=== PATIENT | female | born 1970 | race Caucasian/White ===

== ENCOUNTER 2017-06-25 19:41 | Observation (INO) | payer OTHER ==
[2017-06-25 19:45] VITALS: BMI 33.8
[2017-06-25 20:05] LABS: URINE APPEARANCE Clear; URINE BILIRUBIN Negative (NEGATIVE); URINE BLOOD Negative (NEGATIVE); URINE GLUCOSE (UA) Negative (NEGATIVE); URINE KETONE Negative (NEGATIVE); URINE LEUK ESTERASE Negative (NEGATIVE); URINE NITRITE Negative (NEGATIVE); URINE PROTEIN Negative (NEGATIVE); URINE UROBILINOGEN 0.2 (0.2-1.0)
[2017-06-25 20:08] LABS: URINE COLOR YELLOW
[2017-06-25 20:10] LABS: HCG,QUALITATIVE URINE NEGATIVE
[2017-06-25 20:26] LABS: EOS % 2.5 % (0-4.5); HEMATOCRIT 35.8 % (32.4-45.2); HEMOGLOBIN 11.9 GM/dl (10.7-15.3); LYMPH % 23.9 % (8-40); MCH 28.4 pg (25.7-33.7); MCHC 33.2 g/dl (32.0-36.0); MEAN CELL VOLUME 85.4 fl (80-96); MEAN PLT VOLUME 9.4 fl (7.5-11.1); MONO % 7.2 % (3.8-10.2); NEUT % 65.4 % (42.8-82.8); PLATELET COUNT 212 K/MM3 (134-434); RBC 4.19 M/mm3 (3.60-5.2); WHITE BLOOD COUNT 7.5 K/mm3 (4.0-10.8)
--- NOTE | 2017-06-25 20:43 | PDOC ---
History of Present Illness - History of Present Illness Initial Comments: 06/25/17 21:26 Patient is a 46 F, with PMHx of has 1 kidney, who presents to the ED for 2 days of lower abdominal pain. Patient states that she has had worsening abdominal pain for the past 2 days, localized in the lower abdomen, pain worse on left than right, pain worse when she urinates. She states that eating does not exacerbate the pain. Two months ago she had gallbladder swelling. She denies recent fevers, chills, headache or dizziness. She denies recent nausea, vomit, diarrhea or constipation. She denies recent dysuria, frequency, urgency or hematuria. She denies recent chest pain or shortness of breath. Surgical Hx: Donated right kidney to over 20 years ago. Social Hx: denies EtOH, tobacco, or drug use. <Viridiana Ervin - Last Filed: 06/25/17 21:26> <Ele Loja - Last Filed: 06/26/17 02:28> - General Chief Complaint: Pain, Acute Stated Complaint: ABD PAIN Past History <Viridiana Ervin - Last Filed: 06/25/17 21:26> - Past Medical History COPD: No - Suicide/Smoking/Psychosocial Hx Smoking History: Never smoked <Ele Loja - Last Filed: 06/26/17 02:28> - Past Medical History Allergies/Adverse Reactions: Allergies Allergy/AdvReac Type Severity Reaction Status Date / Time No Known Allergies Allergy Unverified 06/25/17 19:42 Home Medications: Ambulatory Orders Nitrofurantoin Monohyd/M-Cryst [Macrobid -] 100 mg PO BID #14 capsule 06/26/17 Phenazopyridine HCl [Pyridium] 200 mg PO TID #6 tablet 06/26/17 Review of Systems - Review of Systems Comments:: 06/25/17 21:27 GENERAL/CONSTITUTIONAL: No fever or chills. No weakness. HEAD, EYES, EARS, NOSE AND THROAT: No change in vision. No ear pain or discharge. No sore throat. CARDIOVASCULAR: No chest pain or shortness of breath. RESPIRATORY: No cough, wheezing, or hemoptysis. GASTROINTESTINAL: +lower abdominal pain. No nausea, vomiting, diarrhea or constipation. GENITOURINARY: No dysuria, frequency, or change in urination. MUSCULOSKELETAL: No joint or muscle swelling or pain. No neck or back pain. SKIN: No rash NEUROLOGIC: No headache, vertigo, loss of consciousness, or change in strength/ sensation. ENDOCRINE: No increased thirst. No abnormal weight change. HEMATOLOGIC/LYMPHATIC: No anemia, easy bleeding, or history of blood clots. ALLERGIC/IMMUNOLOGIC: No hives or skin allergy. <Viridiana Ervin - Last Filed: 06/25/17 21:26> *Physical Exam - Vital Signs Last Vital Signs Temp Pulse Resp BP Pulse Ox 98.1 F 76 18 142/109 100 06/25/17 19:42 06/25/17 19:42 06/25/17 19:42 06/25/17 19:42 06/25/17 19:42 - Physical Exam Comments: 06/25/17 21:27 GENERAL: Awake, alert, and fully oriented, in no acute distress HEAD: No signs of trauma EYES: PERRLA, EOMI, sclera anicteric, conjunctiva clear ENT: Auricles normal inspection, hearing grossly normal, nares patent, oropharynx clear without exudates. Moist mucosa NECK: Normal ROM, supple, no lymphadenopathy, JVD, or masses LUNGS: Breath sounds equal, clear to auscultation bilaterally. No wheezes, and no crackles HEART: Regular rate and rhythm, normal S1 and S2, no murmurs, rubs or gallops ABDOMEN: Soft, normoactive bowel sounds. Severe pain and guarding diffusely. More on lower left. No flank pain. EXTREMITIES: Normal range of motion, no edema. No clubbing or cyanosis. No cords, erythema, or tenderness NEUROLOGICAL: Cranial nerves II through XII grossly intact. Normal speech, normal gait SKIN: Warm, Dry, normal turgor, no rashes or lesions noted. <Viridiana Ervin - Last Filed: 06/25/17 21:26> - Vital Signs Last Vital Signs Temp Pulse Resp BP Pulse Ox 98.1 F 76 18 142/109 100 06/25/17 19:42 06/25/17 19:42 06/25/17 19:42 06/25/17 19:42 06/25/17 19:42 <Ele Loja - Last Filed: 06/26/17 02:28> ED Treatment Course - LABORATORY CBC & Chemistry Diagram: 06/25/17 19:50 06/25/17 19:50 - ADDITIONAL ORDERS Additional order review: Laboratory Results 06/25/17 06/25/17 19:50 19:50 Sodium 136 Potassium 3.8 Chloride 104 Carbon Dioxide 27 Anion Gap 5 L BUN 7 Creatinine 0.8 Creat Clearance w eGFR > 60 Random Glucose 93 Calcium 8.6 Total Bilirubin 0.6 AST 20 ALT 13 Alkaline Phosphatase 67 Total Protein 6.8 Albumin 3.8 Urine Color Yellow Urine Appearance Clear Urine pH 6.0 Ur Specific Nabb <= 1.005 Urine Protein Negative Urine Glucose (UA) Negative Urine Ketones Negative Urine Blood Negative Urine Nitrite Negative Urine Bilirubin Negative Urine Urobilinogen 0.2 Ur Leukocyte Esterase Negative Urine HCG, Qual Negative 06/25/17 19:50 RBC 4.19 MCV 85.4 MCHC 33.2 RDW 12.0 MPV 9.4 Neutrophils % 65.4 Lymphocytes % 23.9 Monocytes % 7.2 Eosinophils % 2.5 Basophils % 1.0 - Medications Given in the ED: ED Medications Discontinued Medications Generic Name Dose Route Start Last Admin Trade Name Zarina PRN Reason Stop Dose Admin Morphine Sulfate 2 mg 06/25/17 20:55 06/25/17 21:00 Morphine Injection - IVPUSH 06/25/17 20:56 2 mg ONCE ONE Administration Sodium Chloride 1,000 ml 06/25/17 20:55 06/25/17 21:00 Normal Saline - IV 06/25/17 20:56 1,000 ml ONCE ONE Administration <Viridiana Ervin - Last Filed: 06/25/17 21:26> - LABORATORY CBC & Chemistry Diagram: 06/25/17 19:50 06/25/17 19:50 - ADDITIONAL ORDERS Additional order review: Laboratory Results 06/25/17 19:50 Urine Color Yellow Urine Appearance Clear Urine pH 6.0 Ur Specific Nabb <= 1.005 Urine Protein Negative Urine Glucose (UA) Negative Urine Ketones Negative Urine Blood Negative Urine Nitrite Negative Urine Bilirubin Negative Urine Urobilinogen 0.2 Ur Leukocyte Esterase Negative Urine HCG, Qual Negative 06/25/17 19:50 RBC 4.19 MCV 85.4 MCHC 33.2 RDW 12.0 MPV 9.4 Neutrophils % 65.4 Lymphocytes % 23.9 Monocytes % 7.2 Eosinophils % 2.5 Basophils % 1.0 <Ele Loja - Last Filed: 06/26/17 02:28> Medical Decision Making - Medical Decision Making 06/25/17 23:35 Pt comes with abdominal pain that is lower abdominal and diffuse. Pt has has dysuiria, but her UA is normal. Pt has one kidney, as she donated the other to her 20 yrs ago, she has no flank pain and no fever or chills. She does have diffuse lower abd pain and guarding. Pt has normal pelvic sono. No sign of torsion -- though it is only 70% sensitive , and she has a right paraovarian cyst 1.2x0.6cm. I will let pt know she should follow this with a 6 week repeat sono. Pt drank for a CT abd/pelvis; I will not administer IV contrast, as she has only one kidney. Labs are normal. 06/26/17 01:22 Pt with continued abd pain. Her CT scan appears normal; labs normal; UA normal. Pt states that this is the same feeling she had when a urologist at [place] presdctibed her with abx for cystitis. SHe took the meds x 4 weeks and states that for a month after that she had not pain. Now the pain has returned. Pt was being discharged with abx and pyridium. SHe vomited and states that the pain continues. 06/26/17 01:24 I paged our HAND COOPER HELPER director of institutional research ([phone] --Dr. Valdovinos as well as on his cell [phone] and left message. No response. I will likely admit patient to hospitalist for med surg evaluation in the AM, as well as urology eval and DIRECTOR PRODUCT MANAGEMENT eval. 06/26/17 01:30 She may have ovarian torsion/detorsion; She may have urinary retention; unclear what is causeing pain and vomiting. Pt has no PMD, though she mentions that she saw a urologist in [facility] once 2 months ago for a cystitis. Pt will be admitted to the hospitalist team. 06/26/17 02:03 I added on a PT/INR; type and screen; sed rate and crp as well as Lactic acid to aid in eval of patient. Accpeted by the hospitalist TEENA. 06/26/17 02:23 Patient Name: CLOVIS [place] THIS IS A PRELIMINARY REPORT FROM [facility] [employer]PECT[facility] DATE OF SERVICE: 2017-06-25 22:39:01 IMAGES: [id number] EXAM: CT abdomen and pelvis without contrast HISTORY: Colitis pain left lower quadrant hernia COMPARISON: None. FINDINGS: There is no bowel obstruction, free air, or free fluid. Negative for diverticulitis or colitis. Normal appendix. Absent right kidney. No left urinary tract stone or obstruction. Normal liver (limitation the dome of the liver was not included on the scan and cannot be evaluated). Normal spleen. Normal pancreas. No obvious gallbladder abnormalities. Normal adrenal glands. Osseous structures are intact. 06/26/17 02:26 I spoke to the DIRECTOR PRODUCT MANAGEMENT director of institutional research fellow Dr. Valdovinos, who tells me that without ovarian cyst of >4cm it is highly unlikely to have an ovarian torsion. <Ele Loja - Last Filed: 06/26/17 02:28> *DC/Admit/Observation/Transfer - Attestations Scribe Attestion: 06/25/17 21:28 Documentation prepared by Viridiana Ervin, acting as caregivers non medical for Ele Loja MD. <Viridiana Ervin - Last Filed: 06/25/17 21:26> - Discharge Dispostion Admit: Yes <Ele Loja - Last Filed: 06/26/17 02:28> Diagnosis at time of Disposition: Abdominal pain, unspecified site - Discharge Dispostion Condition at time of disposition: Guarded
[2017-06-25 20:45] LABS: ALBUMIN 3.8 g/dl (3.5-5.0); ALK PHOS 67 U/L (32-92); ANION GAP 5 (8-16); BILIRUBIN,TOTAL 0.6 mg/dl (0.2-1.0); BLOOD UREA NITROGEN 7 mg/dl (7-18); CALCIUM 8.6 mg/dl (8.4-10.2); CHLORIDE 104 mmol/L (98-107); CO2 27 mmol/L (22-28); CREATININE 0.8 mg/dl (0.6-1.3); GLUCOSE,RANDOM 93 mg/dl (74-106); POTASSIUM 3.8 mmol/L (3.5-5.1); SGOT/AST 20 U/L (10-42); SGPT/ALT 13 U/L (10-40); SODIUM 136 mmol/L (136-145); TOT PROT 6.8 g/dl (6.4-8.3)
[2017-06-25] MEDS ORDERED: SODIUM CHLORIDE 0.9% 500 ML INFUS.BAG IV ONE (20:55)
[2017-06-25] MEDS ORDERED: morphine CARPU-JECT 2 MG/1 ML DISP.SYRIN IVPUSH ONE (20:55)
[2017-06-25] MEDS ORDERED: morphine SULFATE 4 MG/ML VIAL ONE (20:57)
[2017-06-26] MEDS ORDERED: PHENAZOPYRIDINE HCL 100 MG TABLET (FP) PO ONE (00:48)
[2017-06-26] MEDS ORDERED: PHENAZOPYRIDINE HCL 100 MG TABLET (FP) ONE (00:51)
[2017-06-26] MEDS ORDERED: NITROFURANTOIN MACROCRYSTAL 50 MG CAPSULE (FP) ONE (00:51)
[2017-06-26] MEDS ORDERED: NITROFURANTOIN MACROCRYSTAL 50 MG CAPSULE (FP) PO SCH (01:00)
[2017-06-26] MEDS ORDERED: ONDANSETRON 4 MG/2 ML VIAL IVPUSH PRN (01:44)
[2017-06-26] MEDS ORDERED: morphine SULFATE 4 MG/ML VIAL IVPUSH PRN (01:44)
[2017-06-26] MEDS ORDERED: ACETAMINOPHEN 1000 MG/100 ML VIAL (NON FORMULARY) IVPB ONE (01:45)
[2017-06-26] MEDS ORDERED: SODIUM CHLORIDE 1,000 ML IV SCH (01:45)
[2017-06-26] MEDS ORDERED: ACETAMINOPHEN INJECTION 100 ML IVPB ONE (02:00)
[2017-06-26 03:31] LABS: INR 1.07 (0.82-1.09)
[2017-06-26 06:34] VITALS: BP 101/65; PULSE 71; TEMP 98.3
[2017-06-26 08:05] LABS: BASO % 0.9 % (0-2.0); EOS % 2.5 % (0-4.5); HEMATOCRIT 32.6 % (32.4-45.2); HEMOGLOBIN 10.9 GM/dl (10.7-15.3); LYMPH % 28.5 % (8-40); MCH 28.6 pg (25.7-33.7); MCHC 33.5 g/dl (32.0-36.0); MEAN CELL VOLUME 85.4 fl (80-96); MEAN PLT VOLUME 9.6 fl (7.5-11.1); MONO % 8.5 % (3.8-10.2); NEUT % 59.6 % (42.8-82.8); PLATELET COUNT 204 K/MM3 (134-434); RBC 3.82 M/mm3 (3.60-5.2); RDW 12.4 % (11.6-15.6); WHITE BLOOD COUNT 5.6 K/mm3 (4.0-10.8)
[2017-06-26 08:40] LABS: ANION GAP 5 (8-16); CALCIUM 8.1 mg/dl (8.4-10.2); CHLORIDE 107 mmol/L (98-107); CO2 24 mmol/L (22-28); GLUCOSE,RANDOM 88 mg/dl (74-106); PHOSPHOROUS 3.4 mg/dl (2.5-4.6); POTASSIUM 3.5 mmol/L (3.5-5.1); SODIUM 136 mmol/L (136-145)
[2017-06-26 08:59] LABS: BLOOD UREA NITROGEN < 6 mg/dl (7-18); CREATININE < 0.8 mg/dl (0.6-1.3)
--- NOTE | 2017-06-26 09:07 | PN ---
Progress Note (short form) - Note Progress Note: Has no fever The pain is still present but less Vomited once after getting pain meds O/E Heart regular rhythm Lungs clear Abd soft slight LLQ tenderness + Also has pelvic and RLQ tenderness+ BS heard Ext no edema Vital Signs Period Temp Pulse Resp BP Sys/Jacobo Pulse Ox Last 24 Hr 98.1 F-98.3 F 71-76 18-18 101-142/65-109 99-100 Laboratory Results - last 24 hr 06/25/17 06/25/17 06/25/17 19:50 19:50 19:50 WBC 7.5 RBC 4.19 Hgb 11.9 Hct 35.8 MCV 85.4 MCH 28.4 MCHC 33.2 RDW 12.0 Plt Count 212 MPV 9.4 Neutrophils % 65.4 Lymphocytes % 23.9 Monocytes % 7.2 Eosinophils % 2.5 Basophils % 1.0 ESR PT with INR INR Sodium 136 Potassium 3.8 Chloride 104 Carbon Dioxide 27 Anion Gap 5 L BUN 7 Creatinine 0.8 Creat Clearance w eGFR > 60 Random Glucose 93 Lactic Acid Calcium 8.6 Phosphorus Magnesium Total Bilirubin 0.6 AST 20 ALT 13 Alkaline Phosphatase 67 C-Reactive Protein Total Protein 6.8 Albumin 3.8 Urine Color Yellow Urine Appearance Clear Urine pH 6.0 Ur Specific [place] <= 1.005 Urine Protein Negative Urine Glucose (UA) Negative Urine Ketones Negative Urine Blood Negative Urine Nitrite Negative Urine Bilirubin Negative Urine Urobilinogen 0.2 Ur Leukocyte Esterase Negative Urine HCG, Qual Negative Blood Type Antibody Screen 06/26/17 06/26/17 06/26/17 02:07 02:20 02:30 WBC RBC Hgb Hct MCV MCH MCHC RDW Plt Count MPV Neutrophils % Lymphocytes % Monocytes % Eosinophils % Basophils % ESR Cancelled PT with INR 12.00 H INR 1.07 Sodium Potassium Chloride Carbon Dioxide Anion Gap BUN Creatinine Creat Clearance w eGFR Random Glucose Lactic Acid Calcium Phosphorus Magnesium Total Bilirubin AST ALT Alkaline Phosphatase C-Reactive Protein 2.1 H Total Protein Albumin Urine Color Urine Appearance Urine pH Ur Specific [place] Urine Protein Urine Glucose (UA) Urine Ketones Urine Blood Urine Nitrite Urine Bilirubin Urine Urobilinogen Ur Leukocyte Esterase Urine HCG, Qual Blood Type Antibody Screen 06/26/17 06/26/17 06/26/17 02:30 02:40 07:20 WBC 5.6 RBC 3.82 Hgb 10.9 Hct 32.6 MCV 85.4 MCH 28.6 MCHC 33.5 RDW 12.4 Plt Count 204 MPV 9.6 Neutrophils % 59.6 Lymphocytes % 28.5 Monocytes % 8.5 Eosinophils % 2.5 Basophils % 0.9 ESR PT with INR INR Sodium Potassium Chloride Carbon Dioxide Anion Gap BUN Creatinine Creat Clearance w eGFR Random Glucose Lactic Acid 0.7 Calcium Phosphorus Magnesium Total Bilirubin AST ALT Alkaline Phosphatase C-Reactive Protein Total Protein Albumin Urine Color Urine Appearance Urine pH Ur Specific [place] Urine Protein Urine Glucose (UA) Urine Ketones Urine Blood Urine Nitrite Urine Bilirubin Urine Urobilinogen Ur Leukocyte Esterase Urine HCG, Qual Blood Type O POSITIVE Antibody Screen Negative 06/26/17 07:20 WBC RBC Hgb Hct MCV MCH MCHC RDW Plt Count MPV Neutrophils % Lymphocytes % Monocytes % Eosinophils % Basophils % ESR PT with INR INR Sodium 136 Potassium 3.5 Chloride 107 Carbon Dioxide 24 Anion Gap 5 L BUN < 6 L Creatinine < 0.8 Creat Clearance w eGFR Random Glucose 88 Lactic Acid Calcium 8.1 L Phosphorus 3.4 Magnesium 2.0 Total Bilirubin AST ALT Alkaline Phosphatase C-Reactive Protein Total Protein Albumin Urine Color Urine Appearance Urine pH Ur Specific [place] Urine Protein Urine Glucose (UA) Urine Ketones Urine Blood Urine Nitrite Urine Bilirubin Urine Urobilinogen Ur Leukocyte Esterase Urine HCG, Qual Blood Type Antibody Screen A&P 1.Lower abd pain both RLQ and now more LLQ Etiology of which is not clear Normal blood and CT scan Colitis is a possibility and will d/c home on Cipro for 3 days which she has at home 2.Dysuria The urine is normal Pyridium for symptomatic relief
--- NOTE | 2017-06-26 11:06 | HP ---
DATE OF ADMISSION: HISTORY: She is a 46-year-old female who was admitted with lower abdominal pain, fever, and chills of 2-days' duration. The patient was in her usual state of health until apparently 2 days ago when she started having nonspecific lower abdominal pain. Two days ago the patient had 4 bowel movements, watery. No vomiting. There was no blood or mucus. This was followed by the next day when she continued to experience mild tolerable abdominal pain without any bowel movement or fever. Yesterday on the day of her admission, the patient started experiencing more significant lower abdominal pain with fever and chills and was brought into the emergency room where she was found to have left and right lower quadrant rebound tenderness. Blood work was normal. CAT scans and ultrasounds were also done, and the patient has been admitted. The patient also has burning pain when she passes urine. PAST MEDICAL HISTORY: Significant for renal kidney donation many years ago and mild obesity. MEDICATIONS: None. ALLERGIES: None. SOCIAL HISTORY: She is . She has 2 children. Nonsmoker. Denies any alcohol or drug abuse. FAMILY HISTORY: Significant for 4 siblings. Her mother had diabetes. REVIEW OF SYSTEMS: Unremarkable apart from nonspecific joint pains for which she does not take any medications. She denies any other complaints. She denies any chronic headache, dizziness, chest pain, palpitations, abdominal pain, loss of weight, loss of appetite. PHYSICAL EXAMINATION: Vital Signs: She has blood pressure of 101/65, pulse rate of 71, respiratory rate of 18, and temperature 98.3. HEENT: She is not pale. Nonicteric. Neck: JVD is absent. Thyroid and carotids appear normal. Heart: Regular. Within normal limits. Lungs: Breathing clear. Abdomen: Lower quadrant tenderness. There is mild rebound tenderness in the right and left lower quadrant but the abdomen is soft. Bowel sounds are heard. Herniorrhaphy is intact. Extremities: No edema. Blood work shows WBC count of 7.5. Repeat at 5.6 with normal indices. Hemoglobin and hematocrit are stable. Basic metabolic profile and comprehensive metabolic profile are normal. Urinalysis is normal. The patient had a CT scan of the abdomen and pelvis, which is normal. Ultrasound is normal with a nonspecific cyst. ASSESSMENT AND PLAN: 1. Low abdominal pain associated with tenderness and rebound tenderness, the etiology of which is unclear. Resolving colitis is more likely the possibility. 2. Dysuria, etiology of which is not clear. It is very likely associated with the colitis or mild urinary tract infection, but in the presence of a normal urine is unlikely. Would symptomatically treat with Pyridium for 3-7 days. MARTHA BUENROSTRO M.D. [id number]
== END 2017-06-26 09:33 | disposition home or self-care (01) ==
LOC: FER 19:41 → FM/S 06-26 02:07
PROVIDERS: ADMIT Internal Medicine; ATTEND Internal Medicine
PROC: 3E0333Z Introduction of Anti-inflammatory into Peripheral Vein, Percutaneous Approach (ICD-10-PCS; principal; 2017-06-26)
PROC: 3E033NZ Introduction of Analgesics, Hypnotics, Sedatives into Peripheral Vein, Percutaneous Approach (ICD-10-PCS; 2017-06-26)
PROC: 3E0337Z Introduction of Electrolytic and Water Balance Substance into Peripheral Vein, Percutaneous Approach (ICD-10-PCS; 2017-06-26)
DX: R10.30 Lower abdominal pain, unspecified (principal); R30.0 Dysuria; Z52.4 Kidney donor; E66.9 Obesity, unspecified; Z68.33 Body mass index [BMI] 33.0-33.9, adult
CPT/HCPCS: 36415; 74176-TC; 76830-TC; 76856-TC; 80048; 80053; 81003; 83605; 83735; 84100; 84703; 85025; 85610; 86140; 86850; 86900; 86901; 87086; 96374; 96375; 99284-25; G0378; J0131; J7030